=== PATIENT | female | born 2000 | race Caucasian/White ===

== ENCOUNTER 2023-05-05 11:28 | Emergency (ER) | payer SELFPAY ==
[2023-05-05 13:23] VITALS: BP 97/71; PULSE 108
[2023-05-05] MEDS ORDERED: Albuterol/Ipratropium 3.0-0.5 MG/3 ML Neb Soln NEB STA (14:06)
[2023-05-05] MEDS ORDERED: predniSONE 20 MG Tab PO STA (14:07)
== END 2023-05-05 15:49 | disposition home or self-care (01) ==
LOC: MW.ED 11:28
DX: J45.901 Unspecified asthma with (acute) exacerbation (principal); J12.9 Viral pneumonia, unspecified; F17.290 Nicotine dependence, other tobacco product, uncomplicated; Z20.822 Contact with and (suspected) exposure to COVID-19
CPT/HCPCS: 71046; 87635; 99285; A9270; 99283; J7620-GY; U0002

== ENCOUNTER 2023-07-06 00:56 | Observation (INO) | payer SELFPAY ==
[2023-07-06] MEDS ORDERED: Sodium Chloride 0.9% 1,000 ML IV ONE (01:19)
[2023-07-06] MEDS ORDERED: methylPREDNISolone Sodium Succinate 125 MG/2 ML SDV IVPUSH ONE (01:19)
[2023-07-06] MEDS ORDERED: Albuterol/Ipratropium 3.0-0.5 MG/3 ML Neb Soln NEB ONE ×2 (01:19→02:42)
[2023-07-06 01:37] LABS: BASOPHILS ABSOLUTE AUTO 0.21 K/uL (0.00-0.20); BASOPHILS PERCENT AUTO 1.6 % (0.0-1.0); EOSINOPHILS ABSOLUTE AUTO 1.32 K/uL (0.00-0.45); EOSINOPHILS PERCENT AUTO 10.3 % (0.0-6.0); HEMATOCRIT 43.1 % (37.0-47.0); HEMOGLOBIN 15.1 g/dL (12.0-16.0); IMMATURE GRAN ABSOLUTE AUTO 0.03 K/uL (0.00-0.05); IMMATURE GRAN PERCENT AUTO 0.2 % (0.0-0.4); LYMPHOCYTES ABSOLUTE AUTO 2.52 K/uL (1.00-4.80); LYMPHOCYTES PERCENT AUTO 19.6 % (24.0-44.0); MEAN CORPUSCULAR HEMOGLOBIN 30.6 pg (28.0-32.0); MEAN CORPUSCULAR VOLUME 87.2 fL (83.0-99.0); MEAN PLATELET VOLUME 10.5 fL (9.4-12.3); MONOCYTES ABSOLUTE AUTO 0.79 K/uL (0.00-0.80); MONOCYTES PERCENT AUTO 6.1 % (0.0-8.0); NEUTROPHILS ABSOLUTE AUTO 7.99 K/uL (1.80-7.70); NEUTROPHILS PERCENT AUTO 62.2 % (41.0-71.0); PLATELET COUNT,PLT 300 K/uL (150-400); RED BLOOD CELL COUNT 4.94 M/uL (4.10-5.30); WHITE BLOOD CELL COUNT,WBC 12.86 K/uL (3.9-11.3)
[2023-07-06 02:10] LABS: A/G RATIO 0.9 (0.9-1.6); ALBUMIN 4.1 g/dL (3.4-5.0); BILIRUBIN TOTAL 1.2 mg/dL (0.2-1.0); C-REACTIVE PROTEIN 2.3 mg/dL (<0.3); CALCIUM 9.1 mg/dL (8.5-10.1); CARBON DIOXIDE,CO2 25.6 mmol/L (21.0-32.0); CREATININE 0.8 mg/dL (0.6-1.0); EST CRCL DRUG DOSING (CG) 77.62 mL/min; MAGNESIUM 1.9 mg/dL (1.8-2.4); POTASSIUM,K 3.8 mmol/L (3.5-5.1); PROTEIN TOTAL,TP 8.6 g/dL (6.4-8.2)
[2023-07-06] MEDS ORDERED: Magnesium Sulfate/Water 2 GM in Premix Bag 1 BAG IV ONE (02:43)
[2023-07-06] MEDS ORDERED: Azithromycin 500 MG in Sodium Chloride 0.9% 250 ML IV ONE (02:43)
[2023-07-06] MEDS ORDERED: cefTRIAXone 1 GM in Sodium Chloride 0.9% 50 ML IV ONE (02:43)
[2023-07-06] MEDS: Albuterol/Ipratropium 3.0-0.5 MG/3 ML Neb Soln NEB SCH ×2 (12:18→17:24)
[2023-07-07] MEDS: Albuterol/Ipratropium 3.0-0.5 MG/3 ML Neb Soln NEB SCH ×3 (00:21→11:02)
[2023-07-07] MEDS ORDERED: cefTRIAXone 1 GM in Sodium Chloride 0.9% 50 ML IV SCH (03:00)
[2023-07-07] MEDS ORDERED: Azithromycin 500 MG in Sodium Chloride 0.9% 250 ML IV SCH (04:00)
[2023-07-07 06:05] LABS: CALCIUM 8.3 mg/dL (8.5-10.1); CARBON DIOXIDE,CO2 21.8 mmol/L (21.0-32.0); CREATININE 0.7 mg/dL (0.6-1.0); EST CRCL DRUG DOSING (CG) 92.76 mL/min; POTASSIUM,K 3.9 mmol/L (3.5-5.1)
[2023-07-07 06:19] LABS: BASOPHILS ABSOLUTE AUTO 0.13 K/uL (0.00-0.20); BASOPHILS PERCENT AUTO 1.1 % (0.0-1.0); EOSINOPHILS ABSOLUTE AUTO 0.22 K/uL (0.00-0.45); EOSINOPHILS PERCENT AUTO 1.9 % (0.0-6.0); HEMATOCRIT 35.2 % (37.0-47.0); HEMOGLOBIN 12.1 g/dL (12.0-16.0); IMMATURE GRAN ABSOLUTE AUTO 0.03 K/uL (0.00-0.05); IMMATURE GRAN PERCENT AUTO 0.3 % (0.0-0.4); LYMPHOCYTES ABSOLUTE AUTO 2.21 K/uL (1.00-4.80); LYMPHOCYTES PERCENT AUTO 18.7 % (24.0-44.0); MEAN CORPUSCULAR HEMOGLOBIN 30.6 pg (28.0-32.0); MEAN CORPUSCULAR HGB CONC 34.4 g/dL (32.0-36.0); MEAN CORPUSCULAR VOLUME 89.1 fL (83.0-99.0); MEAN PLATELET VOLUME 11.1 fL (9.4-12.3); MONOCYTES ABSOLUTE AUTO 0.82 K/uL (0.00-0.80); MONOCYTES PERCENT AUTO 6.9 % (0.0-8.0); NEUTROPHILS PERCENT AUTO 71.1 % (41.0-71.0); PLATELET COUNT,PLT 223 K/uL (150-400); RED BLOOD CELL COUNT 3.95 M/uL (4.10-5.30); WHITE BLOOD CELL COUNT,WBC 11.81 K/uL (3.9-11.3)
[2023-07-07] MEDS ORDERED: methylPREDNISolone Sodium Succinate 40 MG/1 ML SDV IVPUSH SCH (09:00)
[2023-07-07 12:39] VITALS: BP 102/57; PULSE 104
== END 2023-07-07 12:00 | disposition home or self-care (01) ==
LOC: MW.ED 00:56 → MW.MS 02:48
PROVIDERS: ADMIT Internal Medicine; ATTEND Internal Medicine
DX: J45.901 Unspecified asthma with (acute) exacerbation (principal); J18.9 Pneumonia, unspecified organism; R00.0 Tachycardia, unspecified; Z79.899 Other long term (current) drug therapy; Z20.822 Contact with and (suspected) exposure to COVID-19
CPT/HCPCS: 36415; 71045; 80048; 80053; 83735; 84703; 85025; 86140; 87635; 93005; 94640; 96365; 96375; 99284; J0456; J0696; J2920; J2930; J3475; J3490; J7030; J7050; 93010; 96366; 96367; 96376; G0378; J7620-GY; U0002

== ENCOUNTER 2023-12-14 07:34 | Observation (INO) | payer SELFPAY ==
[2023-12-14] MEDS: methylPREDNISolone Sodium Succinate 125 MG/2 ML SDV IVPUSH ONE (07:51)
[2023-12-14] MEDS: Albuterol/Ipratropium 3.0-0.5 MG/3 ML Neb Soln NEB STA (07:54)
[2023-12-14] MEDS: Sodium Chloride 0.9% 1,000 ML IV ONE (08:30)
[2023-12-14 08:36] LABS: CORONAVIRUS COVID-19 NAA NEGATIVE (NEGATIVE); INFLUENZA A NAA NEGATIVE (NEGATIVE); INFLUENZA B NAA NEGATIVE (NEGATIVE); RESPIRATORY SYNCYTIAL VIR NAA NEGATIVE (NEGATIVE)
[2023-12-14 08:46] LABS: BASOPHILS ABSOLUTE AUTO 0.18 K/uL (0.00-0.20); BASOPHILS PERCENT AUTO 1.7 % (0.0-1.0); EOSINOPHILS PERCENT AUTO 14.4 % (0.0-6.0); HEMATOCRIT 41.1 % (37.0-47.0); HEMOGLOBIN 14.2 g/dL (12.0-16.0); IMMATURE GRAN ABSOLUTE AUTO 0.02 K/uL (0.00-0.05); IMMATURE GRAN PERCENT AUTO 0.2 % (0.0-0.4); LYMPHOCYTES ABSOLUTE AUTO 1.63 K/uL (1.00-4.80); LYMPHOCYTES PERCENT AUTO 15.6 % (24.0-44.0); MEAN CORPUSCULAR HEMOGLOBIN 30.7 pg (28.0-32.0); MEAN CORPUSCULAR HGB CONC 34.5 g/dL (32.0-36.0); MEAN PLATELET VOLUME 10.9 fL (9.4-12.3); MONOCYTES ABSOLUTE AUTO 0.66 K/uL (0.00-0.80); MONOCYTES PERCENT AUTO 6.3 % (0.0-8.0); NEUTROPHILS ABSOLUTE AUTO 6.46 K/uL (1.80-7.70); NEUTROPHILS PERCENT AUTO 61.8 % (41.0-71.0); PLATELET COUNT,PLT 252 K/uL (150-400); RED BLOOD CELL COUNT 4.62 M/uL (4.10-5.30); WHITE BLOOD CELL COUNT,WBC 10.45 K/uL (3.9-11.3)
[2023-12-14 08:52] LABS: INR 1.07 (0.86-1.11)
[2023-12-14 09:02] LABS: A/G RATIO 1.1 (0.9-1.6); BILIRUBIN TOTAL 0.8 mg/dL (0.2-1.0); CALCIUM 8.9 mg/dL (8.5-10.1); CARBON DIOXIDE,CO2 25.4 mmol/L (21.0-32.0); CREATININE 0.8 mg/dL (0.6-1.0); EST CRCL DRUG DOSING (CG) 83.41 mL/min; PROTEIN TOTAL,TP 7.5 g/dL (6.4-8.2)
[2023-12-14] MEDS: Albuterol 8 GM Inhaler INH STA (09:21)
[2023-12-14] MEDS: cefTRIAXone 2 GM in Sodium Chloride 0.9% 50 ML IV STA (09:21)
[2023-12-14] MEDS: Azithromycin 250 MG Tab PO STA (09:21)
[2023-12-14] MEDS: Magnesium Sulfate/Water 2 GM in Premix Bag 1 BAG IV ONE (09:22)
[2023-12-14 09:32] LABS: LACTIC ACID 1.9 mmol/L (0.4-2.0)
[2023-12-14] MEDS: Sodium Chloride 0.9% 1,000 ML IV SCH ×2 (11:30→19:07)
[2023-12-14] MEDS ORDERED: Albuterol/Ipratropium 3.0-0.5 MG/3 ML Neb Soln NEB PRN (11:53)
[2023-12-14] MEDS: Albuterol/Ipratropium 3.0-0.5 MG/3 ML Neb Soln NEB SCH (12:42)
[2023-12-14] MEDS: predniSONE 10 MG Tab PO ONE (16:40)
[2023-12-14] MEDS: Formoterol/Mometasone 200-5 MCG 8.8 GM Inhaler INH SCH (22:10)
[2023-12-15] MEDS: cefTRIAXone 1 GM in Sodium Chloride 0.9% 50 ML IV SCH (09:28)
[2023-12-15] MEDS: predniSONE 20 MG Tab PO SCH (09:29)
[2023-12-15] MEDS: Azithromycin 500 MG in Sodium Chloride 0.9% 250 ML IV SCH (10:43)
[2023-12-15] MEDS ORDERED: Acetaminophen 325 MG Tab PO PRN (12:05)
[2023-12-16 08:27] LABS: BASOPHILS ABSOLUTE AUTO 0.12 K/uL (0.00-0.20); BASOPHILS PERCENT AUTO 1.3 % (0.0-1.0); EOSINOPHILS ABSOLUTE AUTO 0.12 K/uL (0.00-0.45); EOSINOPHILS PERCENT AUTO 1.3 % (0.0-6.0); HEMATOCRIT 36.1 % (37.0-47.0); IMMATURE GRAN ABSOLUTE AUTO 0.03 K/uL (0.00-0.05); IMMATURE GRAN PERCENT AUTO 0.3 % (0.0-0.4); LYMPHOCYTES ABSOLUTE AUTO 2.51 K/uL (1.00-4.80); LYMPHOCYTES PERCENT AUTO 26.5 % (24.0-44.0); MEAN CORPUSCULAR HEMOGLOBIN 30.5 pg (28.0-32.0); MEAN CORPUSCULAR HGB CONC 33.2 g/dL (32.0-36.0); MEAN CORPUSCULAR VOLUME 91.6 fL (83.0-99.0); MEAN PLATELET VOLUME 10.5 fL (9.4-12.3); MONOCYTES ABSOLUTE AUTO 0.63 K/uL (0.00-0.80); MONOCYTES PERCENT AUTO 6.7 % (0.0-8.0); NEUTROPHILS ABSOLUTE AUTO 6.06 K/uL (1.80-7.70); NEUTROPHILS PERCENT AUTO 63.9 % (41.0-71.0); PLATELET COUNT,PLT 194 K/uL (150-400); RED BLOOD CELL COUNT 3.94 M/uL (4.10-5.30); WHITE BLOOD CELL COUNT,WBC 9.47 K/uL (3.9-11.3)
[2023-12-16 08:48] LABS: ALBUMIN 3.1 g/dL (3.4-5.0); BILIRUBIN TOTAL 0.6 mg/dL (0.2-1.0); CALCIUM 8.4 mg/dL (8.5-10.1); CARBON DIOXIDE,CO2 19.2 mmol/L (21.0-32.0); CREATININE 0.6 mg/dL (0.6-1.0); POTASSIUM,K 3.5 mmol/L (3.5-5.1); PROTEIN TOTAL,TP 6.2 g/dL (6.4-8.2)
[2023-12-16 12:00] VITALS: BP 106/63; PULSE 98
== END 2023-12-16 12:10 | disposition home or self-care (01) ==
LOC: MW.ED 07:34 → MW.MS 11:12
PROVIDERS: ADMIT Internal Medicine; ATTEND Internal Medicine
DX: J18.9 Pneumonia, unspecified organism (principal); J45.901 Unspecified asthma with (acute) exacerbation; Z79.51 Long term (current) use of inhaled steroids; Z79.899 Other long term (current) drug therapy
CPT/HCPCS: 0241U; 36415; 71046; 80053; 83605; 85025; 85610; 87040; 93005; 94640; 96365; 96367; 96375; 99285; A9270; J0456; J0696; J2930; J3475; J3490; J7030; J7050; 93010; 96361; 96366; 96376; 99284; G0378; J7620-GY